=== PATIENT | male | born 1990 | race Two or more races ===

== ENCOUNTER 2025-07-05 16:44 | Inpatient (IN) | payer OTHER, SELFPAY ==
--- OUTSIDE RECORDS SUMMARY | 2023-04-10 05:26 | XMS_ITS | Continuity of Care Document ---
Author Organization sterling [facility] Address [address] [place] [address] Phone Care Team Providers Care Gasser Machine Operator Name Role Phone Zenia Lala Unavailable Unavailabl e Medications Medication Instructions Dosage Effective Dates (start - stop) Status Comments Suboxone 8 mg-[address] 1 film by sublingual route 3 times every day allow to dissolve slowly in mouth without chewing or swallowing 1 film - Active CHELE XA [id number] Zofran 4 mg tablet take 1 tablet [...] Diagnoses Date Provider Providers Copied on Encounter [facility], [address] [place] [address],[address], [place], [place], [id number], [place] tel:[phone] [employer] [facility] No Information 3 Precious Knutson. [address] [place], [place], [id number], [place]. tel:[phone] [facility], [address] [place] [address] [address], [place], [place], [id number], [place] tel:[phone] Tele [facility] OUD (chief complaint) Proc/trtmt not crd out d[facility] 1 No Information [facility], [address], [place], [place], [id number], [place] tel:[phone] Tele [facility] tele (chief complaint) Opioid use disorderProc /trtmt not crd out d/t pt [facility] 1 No Information [facility], [address], [place], [place], [id number], [place] tel:[phone] Tele [facility] MAT (chief complaint) Proc/trtmt not crd out d/t pt [facility] 1 No Information OFFICE/OUTPA TIENT VISIT, EST [facility], [address], [place], [place], [id number], [place] tel:[phone] Tele [facility] MAT/OBAT (chief complaint) Opioid use disorder 1 No Information Family History Family Member Type Diagnosis Age At Onset No Information Payers Payer name Insurance type Covered alliance party ID Authoriza tion(s) [facility] C3 O [id number] Social History Type Description Quantity Date Captured Comments Sex Male Smoking Status No Information Chief Complaint And Reason For Visit No Information Reason For Referral Reason For Referral No Information Plan Of Treatment Date Type Action Status Goal Document SOGI In formation. Due on due Goal Diabetes Screening. Due on due Goal APE. Due on due Goal Td vaccine. Due on due Goal Tdap. Due on due Goal Unhealthy drug u se screening. Due on due Goal Influenza vaccine. Due on due Future Order: Lab Order Syphilis (GC AMP probe urine) ([id number]), Sent on: Sent Future Order: Lab Order Chlamydi a/GC Amplification ([id number]), Sent on: Sent Future Order: Lab Order 4th Gen HIV screen ([id number]), Sent on: Sent Future Order: Lab Order Anti-HAV Ig ([id number]), Sent on: Sent Future Order: Lab Order Buprenor phine MAT ([id number]), Sent on: Sent Future Order: Lab Order HCV Anti body RFX to Quant PCR ([id number]), Sent on: Sent Future Order: Lab Order HCV RT-P CR, Quant (Graph) ([id number]), Sent on: Sent Future Order: Lab Order Hep B Co re Ab, IgM ([id number]), Sent on: Sent Future Order: Lab Order Hep B Co re Ab, Tot ([id number]), Sent on: Sent Future Order: Lab Order Hepatiti s B Surf Ab Quant ([id number]), Sent on: Sent Future Order: Lab Order RPR, Rfx Qn RPR/Confirm TP-PA ([id number]), Sent on: Sent Future Order: Lab Order QuantiFE KIN-TB Gold Plus ([id number]), Sent on: Sent History Of Present Illness Encounter Date Complaint History Of Prese nt Illness OUD Attempted call 2 x to Pt at 3:02 PM, no answer. Attempted call 2x to Pt at 3:56 PM, no answer on 1st try, on 2nd try, someone picked up who denied being Max. Attempted call 2x to Pt at 4:55 PM, no answer, [facility] w/ c/b #. Billing as [...] have clean needles. Educated on AIDs project [place] and harm reduction strategies. Last use 1am [...] illicit Suboxone.Currently in moderate-severe withdrawal.Currently staying at [facility] A peer at the [facility] gave pt the MAT direct line. He call, registered and spoke w/ MAT w/in 30 min.Heroin daily, Using IV and INCrack occasionallyDenies use of cocain, benzo, flip.Smokes cigarettes 1 pk/day.Verbal cows over the phone: Modified COWS score: approx 23 or higherNose running, eyes tearing, anxious, nausea, diarrhea. Took this afternoon 1 8mg. Narcan, Suboxone, and Zofran for comfort med. Preferred Pharmacy: [facility] pharmacyProvider will be consulted on case and will determine eligibility to send Rx. Functional Status Date Functional Assessmen t No Information Instructions Date Instruction Additional Infor mation No Information Assessments Type Assessment Date No Information Patient Care Teams Name Effective Dates (start - stop) Status Members No Information
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
[2025-07-05 17:13] VITALS: BP 124/76; PULSE 103; RESP 18; TEMP 36.3; O2SAT 97; BMI 38.7
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
[2025-07-05 17:38] VITALS: BP 122/87; PULSE 100; RESP 20; TEMP 37.6; O2SAT 96
[2025-07-05 18:33] LABS: MANUAL DIFF FLAG NO
[2025-07-05 18:34] LABS: Hematocrit 40.7 % (42.0-52.0); Hemoglobin 13.5 g/dl (14.0-18.0); Imm Gran Abs Auto 0.02 X10*3/uL (0.00-0.03); Imm Gran Pct Auto 0.3 % (0.0-0.4); Lymphocytes Absolute Auto 2.2 X10*3/uL (1.2-4.9); Mean Corpuscular HGB Conc 33.2 g/dl (31.0-36.0); Mean Corpuscular Hemoglobin 26.7 pg (27.0-33.0); Mean Corpuscular Volume 80.6 fL (80.0-98.0); NRBC Abs Auto 0.000 X10*3/uL (0.0-0.012); NRBC Pct Auto 0.0 /100WBC (0.0-0.2); Platelet Count 224 X10*3/uL (160-400); Red Blood Count 5.05 X10*6/uL (4.60-5.80); White Blood Count 7.6 X10*3/uL (4.8-10.8)
[2025-07-05 18:47] LABS: Alanine Aminotransferase 25 U/L (0-40); Albumin Level 4.3 g/dL (3.5-5.0); Alkaline Phosphatase 64 U/L (39-117); Anion Gap 10 (12-20); Aspartate Amino Transferase 50 U/L (5-37); Blood Urea Nitrogen 18 mg/dL (9-16); Calcium 8.8 mg/dL (8.4-10.2); Carbon Dioxide 24 mmol/L (22-29); Chloride 111 mmol/L (96-108); Creatinine Clr Calc Pharmacy 143.6; Estimated Glomerular Filt Rate > 60; Lipase 10 U/L (8-78); Magnesium 2.0 mg/dL (1.6-2.6); Potassium 4.0 mmol/L (3.3-5.1); Sodium 141 mmol/L (135-145); Total Protein 6.7 g/dL (6.5-8.0)
[2025-07-05 18:52] LABS: Acetaminophen LAB 6 mcg/mL (<30); Salicylate < 5.0 mg/dL (15-30)
[2025-07-05] MEDS: oxyCODONE HCl Immed Release 5 MG TABLET PO (21:40)
--- NOTE | 2025-07-05 21:42 | PC.NURSE ---
pt medicated per mar for pain management, provider into assess pt right hand and splint applied.
--- NOTE | 2025-07-05 23:00 | PC.NURSE ---
pt refusing ua, pt being taking out room to hallway to be with sitter, pt making statement that he can will walk out, notified provider. provider aware and states he is sectioned.
--- NOTE | 2025-07-05 23:05 | PC.NURSE ---
assumed care of pt, pt calm and cooperative right now, previous RN made note of pt agitation. 1:1 sitter at bedside.
[2025-07-05 23:18] VITALS: BP 116/62; PULSE 78; RESP 20; TEMP 37.3; O2SAT 99
--- NOTE | 2025-07-06 | ECG_ITS ---
Test Reason : R/O PROLONGED QT Blood Pressure : */* mmHG Vent. Rate : 77 BPM Atrial Rate : 77 BPM P-R Int : 140 ms QRS Dur : 88 ms QT Int : 368 ms P-R-T Axes : 49 40 42 degrees QTcB Int : 416 ms Normal sinus rhythm with sinus arrhythmia Normal ECG No previous ECGs available Referred By: Leonora Parrish Electronically Signed By: JENNIFER RAMIREZ
--- NOTE | 2025-07-06 00:13 | PC.NURSE ---
pt refusing to provide urine sample. will continue to monitor.
--- NOTE | 2025-07-06 00:51 | PC.NURSE ---
pt calm and cooperative, given sandwich and gaston julio.
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
[2025-07-06] MEDS: oxyCODONE HCl Immed Release 5 MG TABLET PO ×5 (01:15→22:48)
--- NOTE | 2025-07-06 01:29 | PC.NURSE ---
pt medicated for 10/10 pain per MAR.
--- NOTE | 2025-07-06 03:57 | PC.NURSE ---
pt medicated per MAR with 5/10 pain.
--- NOTE | 2025-07-06 05:56 | PC.NURSE ---
pt requesting pain medication, advised unable to give PRN pain meds until 7 am.
[2025-07-06 07:45] VITALS: BP 113/62; PULSE 68; RESP 14; O2SAT 99
--- NOTE | 2025-07-06 08:50 | PC.NURSE ---
this nurse wanted to assess pts wounds- pt refusing assessment. this nurse requested that if the patient went to use the bathroom if he could let me assess the wounds at that time it would be helpful. additionally care team requesting ekg and UA- pt refusing UA as well. will attempt ekg. also pt wanting additional pain medications despite oxycodone being administered, will speak with provider.
[2025-07-06 09:33] LABS: Appearance Urine Clear; Glucose Urine UA Negative (Negative); PH 6.0 (5.0-9.0); Specific Gravity - Urine >= 1.030 (1.005-1.025)
[2025-07-06 09:43] LABS: Cannabinoid Screen Urine Not Detected (Not Detect)
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
--- NOTE | 2025-07-06 15:12 | PC.NURSE ---
Pt arrives from the main ED, he is ambulatory, calm and cooperative. His Rt. hand remains wrapped in a splint W/ Jimmie wrap. He is on 1:1 observation. He reports a decrease in pain and is aware to ask for PRN's. He remains in his room while in the POD, he continues to endorse SI and will not disclose a plan. He states he has had so much going on that he should just be . He denies HI/AVH
[2025-07-06 17:25] VITALS: BP 127/77; PULSE 94; RESP 18; TEMP 36.2; O2SAT 94; BMI 38.6
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
[2025-07-06 20:27] VITALS: BP 114/66; PULSE 82; RESP 16; TEMP 36.4; O2SAT 97
[2025-07-07] MEDS: oxyCODONE HCl Immed Release 5 MG TABLET PO ×3 (07:06→20:15)
[2025-07-07 07:50] VITALS: BP 122/77; PULSE 75; RESP 16; TEMP 36.3; O2SAT 96
[2025-07-07 08:27] LABS: Hemoglobin A1C 99.3805 umol/L; Total Hemoglobin (HGBA1C) 3378.3433 umol/L
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
[2025-07-07 09:13] LABS: Alanine Aminotransferase 25 U/L (0-40); Albumin Level 4.0 g/dL (3.5-5.0); Alkaline Phosphatase 66 U/L (39-117); Anion Gap 12 (12-20); Aspartate Amino Transferase 42 U/L (5-37); Blood Urea Nitrogen 11 mg/dL (9-16); Calcium 8.7 mg/dL (8.4-10.2); Carbon Dioxide 24 mmol/L (22-29); Chloride 109 mmol/L (96-108); Cholesterol 136 mg/dL (<200); Creatinine Clr Calc Pharmacy 189.7; Estimated Glomerular Filt Rate > 60; HDL Cholesterol 39 mg/dL (>40); Potassium 3.9 mmol/L (3.3-5.1); Sodium 141 mmol/L (135-145); Total Protein 6.4 g/dL (6.5-8.0); Triglycerides 130 mg/dL (<150)
[2025-07-07 09:19] LABS: Free T4 (Free Thyroxine) 1.11 ng/dL (0.71-1.85); Thyroid Stimulating Hormone 3.70 uIU/mL (0.32-4.0)
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
[2025-07-07 14:56] VITALS: BP 106/53
[2025-07-07 20:00] VITALS: BP 118/70; PULSE 81; RESP 16; TEMP 37.1; O2SAT 95
[2025-07-07 20:15] VITALS: BP 118/70
[2025-07-08] MEDS: oxyCODONE HCl Immed Release 5 MG TABLET PO ×2 (02:10→06:08)
[2025-07-08 07:00] VITALS: BMI 39.8
[2025-07-08 07:43] VITALS: BP 135/80; PULSE 82; RESP 16; TEMP 36.5; O2SAT 97
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
== END 2025-07-08 11:31 | disposition other institution (70) | DRG 751 ==
LOC: HO.ED 07-06 12:49 → HO.PADLT16 07-06 14:25
PROVIDERS: Physician Assistant Medical; Admitting Provider Nurse Practitioner Psychiatric/Mental Health; Emergency Provider Emergency Medicine; Visit Provider Nurse Practitioner Psychiatric/Mental Health
DX: F33.9 Major depressive disorder, recurrent, unspecified (principal); R45.851 Suicidal ideations; R45.850 Homicidal ideations; S62.612B Displaced fracture of proximal phalanx of right middle finger, initial encounter for open fracture; F43.10 Post-traumatic stress disorder, unspecified; F11.20 Opioid dependence, uncomplicated; F17.210 Nicotine dependence, cigarettes, uncomplicated; F90.9 Attention-deficit hyperactivity disorder, unspecified type; S81.002A Unspecified open wound, left knee, initial encounter; Y24.9XXA Unspecified firearm discharge, undetermined intent, initial encounter; Z59.01 Sheltered homelessness; Z79.899 Other long term (current) drug therapy
CPT/HCPCS: 36415; 72170; 73130; 73562; 80053; 80061; 80143; 80179; 80307; 81003; 83036; 83690; 83735; 84439; 84443; 85025; 93005; 99285; J1171; J2250; S9485

== ENCOUNTER → 2025-07-06 09:44 | Outpatient (BNV) | payer OTHER, SELFPAY | PROVIDERS: Admitting Provider Nurse Practitioner Psychiatric/Mental Health; Emergency Provider Emergency Medicine; Visit Provider Internal Medicine | DX: Z13.6 Encounter for screening for cardiovascular disorders (principal) | CPT/HCPCS: 93010 ==

== ENCOUNTER 2025-07-06 12:38 | Outpatient (BNV) | payer OTHER, SELFPAY | END 2025-07-07 11:10 | PROVIDERS: Admitting Provider Nurse Practitioner Psychiatric/Mental Health; Emergency Provider Emergency Medicine; Visit Provider Radiology Diagnostic Radiology | DX: S81.032A Puncture wound without foreign body, left knee, initial encounter (principal); Y24.9XXA Unspecified firearm discharge, undetermined intent, initial encounter | CPT/HCPCS: 73562 ==

== ENCOUNTER → 2025-07-06 12:38 | Outpatient (BNV) | payer OTHER, SELFPAY | PROVIDERS: Admitting Provider Nurse Practitioner Psychiatric/Mental Health; Emergency Provider Emergency Medicine | DX: T07.XXXA Unspecified multiple injuries, initial encounter (principal); S81.032A Puncture wound without foreign body, left knee, initial encounter; S62.602B Fracture of unspecified phalanx of right middle finger, initial encounter for open fracture; S61.431A Puncture wound without foreign body of right hand, initial encounter | CPT/HCPCS: 99223 ==

== ENCOUNTER → 2025-07-06 12:38 | Outpatient (BNV) | payer OTHER, SELFPAY | PROVIDERS: Admitting Provider Nurse Practitioner Psychiatric/Mental Health; Emergency Provider Emergency Medicine; Visit Provider Registered Nurse | DX: F33.2 Major depressive disorder, recurrent severe without psychotic features (principal); F14.10 Cocaine abuse, uncomplicated; F43.11 Post-traumatic stress disorder, acute | CPT/HCPCS: 90792; 99238 ==

== ENCOUNTER → 2025-07-06 12:38 | Outpatient (BNV) | payer OTHER, SELFPAY | PROVIDERS: Admitting Provider Nurse Practitioner Psychiatric/Mental Health; Emergency Provider Emergency Medicine | DX: S31.829A Unspecified open wound of left buttock, initial encounter (principal); S61.402A Unspecified open wound of left hand, initial encounter; X95.8XXA Assault by other firearm discharge, initial encounter; T07.XXXA Unspecified multiple injuries, initial encounter | CPT/HCPCS: 99222 ==

== ENCOUNTER → 2025-07-06 12:38 | Outpatient (BNV) | payer OTHER, SELFPAY | PROVIDERS: Admitting Provider Nurse Practitioner Psychiatric/Mental Health; Emergency Provider Emergency Medicine; Visit Provider Nurse Practitioner Family | DX: T07.XXXA Unspecified multiple injuries, initial encounter (principal) | CPT/HCPCS: 99222 ==

== ENCOUNTER 2025-07-08 14:15 | Inpatient (IN) | payer OTHER, SELFPAY ==
--- OUTSIDE RECORDS SUMMARY | 2023-04-10 05:26 | XMS_ITS | Continuity of Care Document ---
Author Organization sterling [facility] Address [address] [place] [address] Phone Care Team Providers Care Bookmobile Librarian Name Role Phone Zenia Lala Unavailable Unavailabl e Medications Medication Instructions Dosage Effective Dates (start - stop) Status Comments Suboxone 8 mg-[address] 1 film by sublingual route 3 times every day allow to dissolve slowly in mouth without chewing or swallowing 1 film - Active CHELE XA [id number] Zofran 4 mg tablet take 1 tablet [...] Diagnoses Date Provider Providers Copied on Encounter [facility], [address] [place] [address],[address], [place], [place], [id number], [place] tel:[phone] [employer] [facility] No Information 3 Precious Knutson. [address] [place], [place], [id number], [place]. tel:[phone] [facility], [address] [place] [address] [address], [place], [place], [id number], [place] tel:[phone] Tele [facility] OUD (chief complaint) Proc/trtmt not crd out d/[facility] d/t [facility] 1 No Information [facility], [address], [place], [place], [id number], [place] tel:[phone] Tele [facility] tele (chief complaint) Opioid use disorderProc /trtmt not crd out d/t pt l[facility] 1 No Information [facility], [address], [place], [place], [id number], [place] tel:[phone] Tele [facility] MAT (chief complaint) Proc/trtmt not crd out d/t pt l[facility] 1 No Information OFFICE/OUTPA TIENT VISIT, EST [facility], [address], [place], [place], [id number], [place] tel:[phone] Tele [facility] MAT/OBAT (chief complaint) Opioid use disorder 1 No Information Family History Family Member Type Diagnosis Age At Onset No Information Payers Payer name Insurance type Covered green party ID Authoriza tion(s) [facility] C3 O [id number] Social History Type Description Quantity Date Captured [...] Lab Order Syphilis (GC AMP probe urine) ([id number]), Sent on: Sent Future Order: Lab Order Chlamydi a/GC Amplification ([id number]), Sent on: Sent Future Order: Lab Order 4th Gen HIV screen ([id number]), Sent on: Sent Future Order: Lab Order Anti-HAV Ig ([id number]), Sent on: Sent Future Order: Lab Order Buprenor phine MAT ([id number]), Sent on: Sent Future Order: Lab Order HCV Anti body RFX to Quant PCR ([id number]), Sent on: Sent Future Order: Lab Order HCV RT-P CR, Quant (Graph) ([id number]), Sent on: Sent Future Order: Lab Order Hep B Co re Ab, IgM ([id number]), Sent on: Sent Future Order: Lab Order Hep B Co re Ab, Tot ([id number]), Sent on: Sent Future Order: Lab Order Hepatiti s B Surf Ab Quant ([id number]), Sent on: Sent Future Order: Lab Order RPR, Rfx Qn RPR/Confirm TP-PA ([id number]), Sent on: Sent Future Order: Lab Order QuantiFE KIN-TB Gold Plus ([id number]), Sent on: Sent History Of Present Illness Encounter Date Complaint History Of Prese nt Illness OUD Attempted call 2 x to Pt at 3:02 PM, no answer. Attempted call 2x to Pt at 3:56 PM, no answer on 1st try, on 2nd try, someone picked up who denied being Max. Attempted call 2x to Pt at 4:55 PM, no answer, [facility] w/ c/b #. Billing as LWOBS. tele [...] have clean needles. Educated on AIDs project [place] and harm reduction strategies. Last use 1am [...] in moderate-severe withdrawal.Currently staying at [facility] A peer at the group home gave pt the MAT direct line. He call, registered and spoke w/ MAT w/in 30 min.Heroin daily, Using IV and INCrack occasionallyDenies use of cocain, benzo, flip.Smokes cigarettes 1 pk/day.Verbal cows over the phone: Modified COWS score: approx 23 or higherNose running, eyes tearing, anxious, nausea, diarrhea. Took this afternoon 1 8mg. Narcan, Suboxone, and Zofran for comfort med. Preferred Pharmacy: [facility] pharmacyProvider will be consulted on case and will determine eligibility to send Rx. Functional Status Date Functional Assessmen t No Information Instructions Date Instruction Additional Infor mation No Information Assessments Type Assessment Date No Information Patient Care Teams Name Effective Dates (start - stop) Status Members No Information
[2025-07-08] VITALS (8 sets, daily range): BP systolic 113–126; BP diastolic 59–78; PULSE 70–94; RESP 9–20; TEMP 36.2–37.1; O2SAT 93–100; BMI 38.7; BMI 39.3; BMI 41.9
--- NOTE | ~2025-07-08 | FL_ITS ---
EXAMINATION: FL GUIDANCE ONLY HISTORY: Middle finger amputation, Foreign body removal COMPARISON: Correlation is made with plain films of the right hand dated 07/07/2025. TECHNIQUE: Fluoroscopy time: 76.52 seconds. Cumulative Dose: 2.0347 mGy. DAP: 0.1230 Gycm2 Images: 11. FINDINGS: Fluoroscopic spot films of the right hand demonstrate amputation of the middle finger at the level of the PIP joint and internal fixation of the previously seen comminuted fracture of the proximal phalanx with 2 K wires. FL/FL guidance in OR IMPRESSION: Fluoroscopy during procedure. Please see procedure report for additional information. Electronically signed by: Aaron Calvo MD 07/09/2025 07:11 AM EDT
--- NOTE | 2025-07-08 12:06 | PC.NURSE ---
asked patient again he sts told staff from previous floor he felt like harming self not feeling no right in my mind not feeling violent or HI awaiting sitter for patient. aware careplan calm pleasant and cooperative with care
[2025-07-08] MEDS: Lactated Ringers 1,000 ML 50 ML IVCONT (12:30)
--- NOTE | 2025-07-08 12:31 | PC.NURSE ---
restless with aggressive behavior toward staff will have 1:1 sitter sts i want something to drink now educated on npo status secondary to surgery. calmer after explanation apologized for behavior. this rn dimmed lights and giving patient bolus fluid. will stay with patient resp easy and reg
--- NOTE | 2025-07-08 12:37 | PC.NURSE ---
pt sinus on the monitor, monitor off patient risks of using leads to harm self pt attempting to sleep calmer. blanket given to patient and stimulation reduced sts feeling better less pain and anxiety with less noise resp easy and reg 1:1 sitter aware of plan of care
--- NOTE | 2025-07-08 12:44 | PC.NURSE ---
pt sleeping resp easy and reg 1:1 sitter continues no s/sx distress
--- NOTE | 2025-07-08 12:48 | PC.NURSE ---
pt aware of need for sitter for his safety pt cooperative with care 1:1
--- NOTE | 2025-07-08 12:54 | PC.NURSE ---
1:1 sitter pt sleeping resp easy and reg nad
--- NOTE | 2025-07-08 13:16 | PC.NURSE ---
pt sleeping nad 1;1 sitter
--- NOTE | 2025-07-08 13:19 | PC.NURSE ---
patinet picking on right side hand dressing easily redirected aware of increase infection with handling wound
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
--- NOTE | 2025-07-08 13:38 | PC.NURSE ---
pt aware careplan going into surgery nad calm and cooperative
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
[2025-07-08] MEDS: oxyCODONE HCl Immed Release 5 MG TABLET PO ×2 (18:20→22:22)
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
[2025-07-09] MEDS: oxyCODONE HCl Immed Release 5 MG TABLET PO ×3 (02:34→12:22)
[2025-07-09 03:41] VITALS: BP 102/53; PULSE 67; RESP 18; TEMP 36.5; O2SAT 97
[2025-07-09 06:31] LABS: Anion Gap 11 (12-20); Blood Urea Nitrogen 13 mg/dL (9-16); Calcium 8.5 mg/dL (8.4-10.2); Carbon Dioxide 19 mmol/L (22-29); Chloride 108 mmol/L (96-108); Creatinine Clr Calc Pharmacy 233.1; Estimated Glomerular Filt Rate > 60; Potassium 4.6 mmol/L (3.3-5.1); Sodium 133 mmol/L (135-145)
[2025-07-09 07:12] VITALS: BP 110/54; PULSE 63; RESP 18; TEMP 36.4; O2SAT 97
[2025-07-09] MEDS: 0.9 % Sodium Chloride Flush 3 ML SYRINGE IVFLUSH (08:10)
--- NOTE | 2025-07-09 08:29 | HO.POSTANES ---
Post Anesthesia Evaluation Post Anesthesia Evaluation Date of Service: 07/09/25 Vital Signs: Vital Signs Temp Pulse Resp BP Pulse Ox O2 Del Method 07/09/25 07:12 97.6 F 63 18 110/54 L 97 Room Air 07/09/25 03:41 97.7 F 67 18 102/53 L 97 Room Air 07/08/25 23:59 97.2 F 87 18 122/62 96 Room Air Anesthesia: General Mental Status: Awake Pain Control: Satisfactory Nausea/Vomiting: None Hydration: Adequate Anesthesia-Related Issues: No Anes. Related Issues
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
[2025-07-09 10:00] LABS: Hematocrit 40.5 % (42.0-52.0); Hemoglobin 13.3 g/dl (14.0-18.0); Imm Gran Abs Auto 0.03 X10*3/uL (0.00-0.03); Imm Gran Pct Auto 0.3 % (0.0-0.4); Lymphocytes Absolute Auto 1.6 X10*3/uL (1.2-4.9); Mean Corpuscular HGB Conc 32.8 g/dl (31.0-36.0); Mean Corpuscular Hemoglobin 27.1 pg (27.0-33.0); Mean Corpuscular Volume 82.5 fL (80.0-98.0); NRBC Abs Auto 0.000 X10*3/uL (0.0-0.012); NRBC Pct Auto 0.0 /100WBC (0.0-0.2); Platelet Count 267 X10*3/uL (160-400); Red Blood Count 4.91 X10*6/uL (4.60-5.80); White Blood Count 8.6 X10*3/uL (4.8-10.8)
--- NOTE | 2025-07-09 11:30 | MHC.CARE ---
Care team met with Pt at bedside to determine level of care as Pt was transferred from to the medical floor. Pt currently denies SI and HI with plan or intent. Pt denies A/V/H. Pt is not from the [facility] area and has been discharged from the substance use program he was staying in. Pt is advocating to return to [place] where he is from. Pt does not present as an imminent risk and does not meet the criteria to return to [facility] at this time. Provider in agreement.
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
[2025-07-09 13:25] LABS: MANUAL DIFF FLAG NO
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
--- NOTE | 2025-07-10 10:59 | MHC.CM.PN ---
PT REPORTS HE WAS LIVING AT [facility], BUT HAS SINCE BEEN DISCHARGED HE INITIALLY WAS UNSURE WHERE HE WOULD BE GOING AT [place], BUT LATER DECIDED TO RETURN TO [place] HE HAS NO PCP IN THE AREA, AND DECLINES A HCP PT DISCHARGED YESTERDAY WITH NO SERVICES, CM ARRANGED LYFT TRANSPORT TO [facility] PT INDICATED HE HAD BELONGINGS THERE. HE STATED ONCE HE OBTAINED HIS BELONGINGS FROM [facility], HE WOULD BE ABLE TO GET TO [email or web address] ON HIS OWN
== END 2025-07-09 15:51 | disposition home or self-care (01) | DRG 316 ==
LOC: HO.SSSA 14:16 → HO.S3 14:19
PROVIDERS: Visit Provider Orthopaedic Surgery
PROC: 0PST04Z Reposition Right Finger Phalanx with Internal Fixation Device, Open Approach (ICD-10-PCS; CPT 26951; principal; 2025-07-08 14:50)
DX: S62.612B Displaced fracture of proximal phalanx of right middle finger, initial encounter for open fracture (principal); F17.210 Nicotine dependence, cigarettes, uncomplicated; S62.622B Displaced fracture of middle phalanx of right middle finger, initial encounter for open fracture; Y24.9XXA Unspecified firearm discharge, undetermined intent, initial encounter; F32.9 Major depressive disorder, single episode, unspecified; F43.10 Post-traumatic stress disorder, unspecified; Z71.6 Tobacco abuse counseling; Z59.01 Sheltered homelessness; Z79.899 Other long term (current) drug therapy
CPT/HCPCS: 36415; 80048; 85025; 88302; 88305; 88311; 97165; J0131; J0736; J1100; J1171; J2003; J2004; J2250; J2405; J2704; J3010; S9485

== ENCOUNTER → 2025-07-08 14:15 | Outpatient (BNV) | payer OTHER, SELFPAY | PROVIDERS: Visit Provider Orthopaedic Surgery | DX: S62.602B Fracture of unspecified phalanx of right middle finger, initial encounter for open fracture (principal); T07.XXXA Unspecified multiple injuries, initial encounter; R45.851 Suicidal ideations; F33.9 Major depressive disorder, recurrent, unspecified; F43.10 Post-traumatic stress disorder, unspecified | CPT/HCPCS: 26735; 26951; 99024 ==

== ENCOUNTER → 2025-07-08 14:15 | Outpatient (BNV) | payer OTHER, SELFPAY | PROVIDERS: Visit Provider Nurse Practitioner Family | DX: K59.01 Slow transit constipation (principal); F14.10 Cocaine abuse, uncomplicated; T07.XXXA Unspecified multiple injuries, initial encounter | CPT/HCPCS: 99223 ==

== ENCOUNTER 2025-07-14 12:12 | Outpatient (AMB) | payer OTHER, SELFPAY ==
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
== END 2025-07-14 13:24 | disposition home or self-care (01) ==
LOC: HO.HOS 12:12
PROVIDERS: Visit Provider Orthopaedic Surgery
DX: S62.602B Fracture of unspecified phalanx of right middle finger, initial encounter for open fracture (principal); S61.431A Puncture wound without foreign body of right hand, initial encounter; F17.200 Nicotine dependence, unspecified, uncomplicated; F14.10 Cocaine abuse, uncomplicated; F43.10 Post-traumatic stress disorder, unspecified
CPT/HCPCS: 99024

== ENCOUNTER 2025-07-14 12:12 | Outpatient (REF) | payer OTHER, SELFPAY | END 2025-07-14 12:13 | disposition home or self-care (01) | LOC: HO.HOSX 12:12 | PROVIDERS: Visit Provider Orthopaedic Surgery | DX: Z46.89 Encounter for fitting and adjustment of other specified devices (principal); S62.612B Displaced fracture of proximal phalanx of right middle finger, initial encounter for open fracture; S62.622B Displaced fracture of middle phalanx of right middle finger, initial encounter for open fracture; F43.10 Post-traumatic stress disorder, unspecified; F14.10 Cocaine abuse, uncomplicated; F17.210 Nicotine dependence, cigarettes, uncomplicated; X58.XXXA Exposure to other specified factors, initial encounter | CPT/HCPCS: 99212 ==

== ENCOUNTER 2025-07-26 14:57 | Outpatient (REF) | payer OTHER, SELFPAY | END 2025-07-26 14:58 | disposition home or self-care (01) | LOC: HO.HOSX 14:57 | PROVIDERS: Visit Provider Orthopaedic Surgery | DX: Z13.89 Encounter for screening for other disorder (principal) ==

== ENCOUNTER 2025-08-06 09:03 | Outpatient (REF) | payer OTHER, SELFPAY ==
--- OUTSIDE RECORDS SUMMARY | 2023-04-10 05:26 | XMS_ITS | Continuity of Care Document ---
Author Organization sterling [facility] Address [address] [place] [address] Phone Care Team Providers Care Gas Inspector Name Role Phone Zenia Lala Unavailable Unavailabl e Medications Medication Instructions Dosage Effective Dates (start - stop) Status Comments Suboxone 8 mg-[address] 1 film by sublingual route 3 times every day allow to dissolve slowly in mouth without chewing or swallowing 1 film - Active CHELE XA [id number] Zofran 4 mg tablet take 1 tablet by oral route no more than every 6 hours as needed for nausea - Active Narcan 4 mg/actuation nasal spray spray 0.1 milliliter by intranasal route in 1 nostril may repeat dose every 2-3 minutes as needed alternating nostrils with each dose 4 MG - Active Procedures Procedure Date Left W/O Being Seen Left W/O Being Seen Left W/O Being Seen OFFICE/OUTPATIENT VISIT, EST Advance Directives Directive Yes / No Effective Date File Name No Information Encounters Encounter Description Practice Location Reason(s) For Visit Diagnoses Date Provider Providers Copied on Encounter [facility], [address] [place] [address],[address], [place], [place], [id number], [place] tel:[phone] [employer] [facility] No Information 3 Precious Knutson. [address] [place], [place], [id number], [place]. tel:[phone] [facility], [address] [place] [address] [address], [place], [place], [id number], [place] tel:[phone] [facility] OUD (chief complaint) Proc[facility]trtmt not crd out [facility] d[facility]t [facility] 1 No Information [facility], [address], [place], [place], [id number], [place] tel:[phone] Tele [facility] tele (chief complaint) Opioid use disorderProc /trtmt not crd out d/t pt lv bef seen by [facility] 1 No Information [facility], [address], [place], [place], [id number], [place] tel:[phone] Tele [facility] MAT (chief complaint) Proc/trtmt not crd out d/t pt lv bef seen by [facility] 1 No Information OFFICE/OUTPA TIENT VISIT, EST [facility], [address], [place], [place], [id number], [place] tel:[phone] Tele [facility] MAT/OBAT (chief complaint) Opioid use disorder 1 No Information Family History Family Member Type Diagnosis Age At Onset No Information Payers Payer name Insurance type Covered republican ID Authoriza tion(s) [facility] C3 O [id number] Social History Type Description Quantity Date Captured Comments Sex Male Smoking Status No Information Chief Complaint And Reason For Visit No Information Reason For Referral Reason For Referral No Information Plan Of Treatment Date Type Action Status Goal Unhealthy drug u se screening. Due on due Goal Document SOGI In formation. Due on due Goal Diabetes Screening. Due on due Goal APE. Due on due Goal Influenza vaccine. Due on due Goal Tdap. Due on due Goal Td vaccine. Due on due Future Order: Lab Order Syphilis (GC AMP probe urine) ([id number]), Sent on: Sent Future Order: Lab Order Chlamydi a/GC Amplification ([id number]), Sent on: Sent Future Order: Lab Order 4th Gen HIV screen ([id number]), Sent on: Sent Future Order: Lab Order Anti-HAV Ig ([id number]), Sent on: Sent Future Order: Lab Order Buprenor phine MAT ([id number]), Sent on: Sent Future Order: Lab Order HCV Anti body RFX to Quant PCR ([id number]), Sent on: Sent Future Order: Lab Order HCV RT-P CR, Quant (Graph) ([id number]), Sent on: Sent Future Order: Lab Order Hep B Co re Ab, IgM ([id number]), Sent on: Sent Future Order: Lab Order Hep B Co re Ab, Tot ([id number]), Sent on: Sent Future Order: Lab Order Hepatiti s B Surf Ab Quant ([id number]), Sent on: Sent Future Order: Lab Order RPR, Rfx Qn RPR/Confirm TP-PA ([id number]), Sent on: Sent Future Order: Lab Order QuantiFE KIN-TB Gold Plus ([id number]), Sent on: Sent History Of Present Illness Encounter Date Complaint History Of Prese nt Illness OUD Attempted call 2 x to Pt at 3:02 PM, no answer. Attempted call 2x to Pt at 3:56 PM, no answer on 1st try, on 2nd try, someone picked up who denied being Max. Attempted call 2x to Pt at 4:55 PM, no answer, [facility] w/ c/b #. Billing as LWOBS. tele 30yo M presents for MAT f/u by televisitEnglish speakingInduced 10/28 w/ nursing after a friend gave him direct line to MAT RN team, called in and was induced same day. Called 8:35, no answer, LVMCalled 8:40, no answer, LVMCalled 8:48, no answer, [facility] MAT Not able to talk in ED, request call back in a couple hours. Attempted calling patient 3x through evening, unable to reach him, and I have requested MAT team to continue outreach. MAT/OBAT 30 y old called for MAT induction visit.DSM-5 Criteria for OUD reviewed w/ pt and pt meets criteria on > 2 points.Has been using daily heroin ~100$ worth per day. Using IV and IN. Does not have clean needles. Educated on AIDs project [place] and harm reduction strategies. Last use 1am this morning. Bought Suboxone off the street and used it this afternoon as i just wanted to get clean quick, I'm ready to be done using . Has purchased Suboxone off the street in the past and reports good effect w/ 8mg TID. Has never had an SE or issues w/ illicit Suboxone.Currently in moderate-severe withdrawal.Currently staying at [facility] A peer at the longterm gave pt the MAT direct line. He call, registered and spoke w/ MAT w/in 30 min.Heroin daily, Using IV and INCrack occasionallyDenies use of cocain, benzo, flip.Smokes cigarettes 1 pk/day.Verbal cows over the phone: Modified COWS score: approx 23 or higherNose running, eyes tearing, anxious, nausea, diarrhea. Took this afternoon 1 8mg. Narcan, Suboxone, and Zofran for comfort med. Preferred Pharmacy: [facility] pharmacyProvider will be consulted on case and will determine eligibility to send Rx. Functional Status Date Functional Assessmen t No Information Instructions Date Instruction Additional Infor mation No Information Assessments Type Assessment Date No Information Patient Care Teams Name Effective Dates (start - stop) Status Members No Information
--- NOTE | ~2025-08-06 | XR_ITS ---
EXAMINATION: XR HAND 3 OR MORE VIEWS RIGHT HISTORY: M79.641 - Pain in right hand COMPARISON: Comparison is made with the prior examination dated 07/07/2025. FINDINGS: Three views of the hand are submitted. Osseous mineralization is normal. In the interval since the prior study, the patient is status post amputation of the middle finger at the level of the PIP joint. The patient is status post internal fixation of a comminuted fracture of the proximal phalanx of the middle finger with 2 K wires. The fracture lines remain visible. The remaining joint spaces are preserved. The soft tissues are unremarkable. XR/XR hand RT min 3V IMPRESSION: Status post amputation of the middle finger at the level of the PIP joint. Internal fixation of a comminuted fracture of the proximal phalanx of the middle finger. Electronically signed by: Aaron Calvo MD 08/06/2025 10:26 AM EDT
== END 2025-08-06 09:04 | disposition home or self-care (01) ==
LOC: HO.HOSX 09:03
DX: S61.431A Puncture wound without foreign body of right hand, initial encounter (principal); S62.602D Fracture of unspecified phalanx of right middle finger, subsequent encounter for fracture with routine healing; F14.10 Cocaine abuse, uncomplicated; F43.10 Post-traumatic stress disorder, unspecified; F17.210 Nicotine dependence, cigarettes, uncomplicated
CPT/HCPCS: 29085; 73130; 99212

== ENCOUNTER 2025-08-06 09:28 | Outpatient (AMB) | payer OTHER, SELFPAY ==
[2025-08-06 10:04] VITALS: BMI 41.9
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
== END 2025-08-06 10:07 | disposition home or self-care (01) ==
LOC: HO.HOS 09:29
DX: S62.602B Fracture of unspecified phalanx of right middle finger, initial encounter for open fracture (principal); F17.200 Nicotine dependence, unspecified, uncomplicated; F14.10 Cocaine abuse, uncomplicated; F43.10 Post-traumatic stress disorder, unspecified
CPT/HCPCS: 29085; 99024

== ENCOUNTER → 2025-08-06 09:47 | Outpatient (BNV) | payer OTHER, SELFPAY | PROVIDERS: Visit Provider Radiology Diagnostic Radiology | DX: M79.641 Pain in right hand (principal) | CPT/HCPCS: 73130 ==